=== PATIENT | female | born 1945 | race Caucasian/White ===

== ENCOUNTER → 2021-04-13 | Outpatient (REF) | payer MEDICARE, OTHER | LOC: M LAB REF 17:15 | PROVIDERS: ATTEND Internal Medicine Nephrology | DX: N18.32 Chronic kidney disease, stage 3b (principal) ==

== ENCOUNTER → 2021-08-09 | Outpatient (CLI) | payer MEDICARE, OTHER ==
[~2021-08-09] MED LIST: **SFHN** LIDOCAINE 1% MDV 20ML VIAL ONE; **SFHN** SODIUM BICARBONATE 8.4% 10MEQ 10ML VIAL ONE; BUPR150T12 PO; CALCTAB89 PO; CARB10TACH PO; CRES40TA PO; FURO40TA2 PO; LISI20TA33 PO; MAGN400C PO; PLAV1TAB2 PO; PREG100CA PO; PRIL20TA2 PO; SALA1TAB PO; SING10TA32 PO; TRUL0.5I SC; XARE20TA PO
[2021-08-09 11:20] VITALS: BP 132/78
== END ==
LOC: M WHCPRO 09:20
PROVIDERS: ATTEND Nurse Practitioner Family
DX: N60.22 Fibroadenosis of left breast (principal)